=== PATIENT | male | born 2005 | race Caucasian/White ===

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

== ENCOUNTER 2024-06-13 05:34 | Emergency (ER) | payer OTHER ==
[~2024-06-13] VITALS: Ht 180.3 cm; Wt 74.4 kg
[~2024-06-13 05:34] MED LIST changes: +PRILOSEC20 M1 PO; +ZOFRAN4 MG PO
[2024-06-13] MEDS ORDERED: VIBRAMYCIN100 MG PO (05:54)
== END 2024-06-13 05:58 | disposition home or self-care (01) ==
LOC: ED 05:34
DX: S30.861A Insect bite (nonvenomous) of abdominal wall, initial encounter (principal); W57.XXXA Bitten or stung by nonvenomous insect and other nonvenomous arthropods, initial encounter; Y93.89 Activity, other specified; Y92.009 Unspecified place in unspecified non-institutional (private) residence as the place of occurrence of the external cause; Y99.8 Other external cause status